=== PATIENT | female | born 1930 | race Caucasian/White ===

== ENCOUNTER 2017-07-11 16:51 | Inpatient (IN) | payer MEDICARE ==
[2017-07-11 17:43] LABS: #Eosinphils 0.3 thou/uL (0.0-0.7); #Lymphocytes 1.8 thou/uL (1.20-3.40); #Monocytes 1.4 thou/uL (0.11-0.59); %Basophils 0.4 % (0.0-1.0); %Eosinophils 2.4 % (0.0-10.0); %Lymphocytes 14.2 % (21.0-51.0); %Monocytes 11.4 % (0.0-10.0); %Neutrophils 71.6 % (42.0-75.0); Hemoglobin 13.7 g/dL (12.0-16.0); Mean Corpuscular HGB CONC 33.1 g/dL (32.0-36.0); Mean Corpuscular Hemoglobin 32.7 pg (27.0-31.0); Mean Corpuscular Volume 98.8 fl (81.0-99.0); Mean Platelet Volume 6.1 fL (7.4-10.4); Platelet Count 262 thou/uL (130-400); RBC Distribution Width 12.2 % (11.5-14.5); White Blood Cell (WBC) Count 12.6 thou/uL (4.8-10.8)
[2017-07-11 18:02] LABS: ALT (SGPT) 16 U/L (8-55); AST (SGOT) 21 U/L (5-34); Albumin 4.2 g/dL (3.4-4.8); Alkaline Phosphatase 71 U/L (40-150); Anion Gap 13 mmol/L (10-20); BUN (Urea Nitrogen) 33 mg/dL (9.8-20.1); Bilirubin, Total 0.7 mg/dL (0.2-1.2); CK (CPK) 106 U/L (29-168); Calc. Creatinine Clearance 0 mL/min (70-130); Calcium 10.2 mg/dL (7.8-10.44); Carbon Dioxide 33 mmol/L (23-31); Chloride 92 mmol/L (98-107); Estimated GFR-MDRD 39; Globulin 3.1 g/dL (2.4-3.5); Glucose 82 mg/dL (83-110); Potassium 4.7 mmol/L (3.5-5.1); Protein, Total 7.3 g/dL (6.0-8.3); Sodium 133 mmol/L (136-145)
--- NOTE | 2017-07-11 18:02 | RAD ---
RIGHT ANKLE THREE VIEWS: 07/11/17 HISTORY: 87-year-old female with history of second toe osteomyelitis and cellulitis. There is minimal soft tissue swelling of the lower leg and ankle. No acute fracture or dislocation of the ankle. IMPRESSION: Diffuse soft tissue swelling of the lower leg and ankle. No fracture or dislocation. 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 POS: [facility]
--- NOTE | 2017-07-11 18:41 | RAD ---
RIGHT FOOT THREE VIEWS 07/11/17 HISTORY: 87-year-old female with left second toe osteomyelitis and cellulitis. There is soft tissue swelling o f the distal second toe with destructive changes of the distal phalanx of the second toe evidence for acute osteomyelitis. Extensive chronic changes in the midfoot, evidence for some degenerative arthro sis and possibly some developing neurotropic changes. Enthesophytic changes noted of the plantar fasc ia. No acute fracture or dislocation. IMPRESSION: Soft tissue swelling distal second toe and destructive changes of the distal phalanx evidence for ost eomyelitis. Arthrosis and degenerative changes right foot, particularly the mid foot with some possib le developing neurotropic changes of the mid foot. POS: [facility]
[2017-07-11] MEDS ORDERED: Cefepime 2 GM/10 ML SYR ONE (19:14)
[2017-07-11] MEDS ORDERED: Ondansetron HCl/PF 4 MG/2 ML Vial IVP PRN ×2 (21:35→22:17)
[2017-07-11] MEDS ORDERED: Ondansetron ODT 4 MG TAB SL PRN (21:35)
[2017-07-11] MEDS ORDERED: Morphine 2 MG/ML SYRINGE SLOW IVP PRN ×2 (21:36→22:17)
[2017-07-11] MEDS ORDERED: Dextrose 50% Abboject 50 ML SYRINGE SLOW IVP PRN (22:17)
[2017-07-11] MEDS ORDERED: Labetalol HCl 100 MG/20 ML VIAL SLOW IVP PRN (22:17)
[2017-07-11] MEDS ORDERED: Dextrose 5% in Water 1,000 ML IV PRN (22:17)
[2017-07-11] MEDS ORDERED: Acetaminophen 325 MG TAB PO PRN (22:17)
[2017-07-11] MEDS ORDERED: Milk Of Magnesia 30 ML UDCUP PO PRN (22:17)
[2017-07-11] MEDS ORDERED: HumaLOG 300 UNITS/3 ML VIAL SC PRN ×2 (22:17)
[2017-07-11] MEDS ORDERED: hydrALAZINE 20 MG/ML VIAL SLOW IVP PRN (22:17)
[2017-07-11] MEDS ORDERED: Mag-Al 1200 mg/1200 mg/30 ML UDCUP PO PRN (22:17)
[2017-07-11] MEDS ORDERED: Ondansetron ODT 4 MG TAB PO PRN (22:17)
[2017-07-12] MEDS: Sodium Chloride 0.9% 1,000 ML IV SCH ×2 (00:11→19:37)
--- NOTE | 2017-07-12 03:50 | HP ---
PRIMARY CARE PHYSICIAN: Dr. Sanders. CHIEF COMPLAINT: Swelling and infection in the second toe of the right foot. HISTORY OF PRESENT ILLNESS: Ms. Valdes is a very pleasant 87-year-old female who says she had proble ms with her second toe on the right foot. She says this started about 5 weeks ago, she noted some sw elling in the area. She says she talked to doctor at herself and says that it seems like it had nerissa en better, but then came back. She was seeing Dr. Sanders for unrelated symptoms for upper respiratory symptoms when he noticed the toe and placed her on some antibiotics and said that it would cover bot h the upper respiratory infection as well as the toe and then referred her to a multiple cut off saw operator. When she saw the multiple cut off saw operator, he recommended that she come in to be admitted because likely she would need a t oe amputation. She says she does not really feel any pain in the toe. She denies any fevers or chil ls. She does not believe that she had any type of trauma to the area, but she does walk, her wheelch air around and this does put some stress on the toe, otherwise, no other symptoms. REVIEW OF SYMPTOMS: Constitutional: No fevers, chills, no night sweats, no weight loss. HEENT: No headache, no dizziness, no visual changes, no sore throat, rhinorrhea, neck pain, no adenopathy. Pu lmonary: No hemoptysis, no cough, no wheezing. Cardiovascular: She denies any chest pain, no short ness of breath, no PND, no orthopnea. Gastrointestinal: No abdominal pain, no nausea, no vomiting, no change in bowels. Genitourinary: No urinary frequency, hematuria, no hesitancy. Neurologic: No focal weakness, numbness, no seizures. Psychiatric: No symptoms of anxiety or depression. Skin an d Integument: She had the changes in the toes previously mentioned. PAST MEDICAL HISTORY: Significant for asthma as well as COPD and chronic respiratory failure seconda ry to that, hypothyroidism, hypertension, breast cancer, generalized anxiety, depression, and diabete s mellitus for 15-20 years. PAST SURGICAL HISTORY: She has had back surgery, appendectomy, hysterectomy. ALLERGIES: CELEBREX, PENICILLIN, PHENERGAN, and AZITHROMYCIN. FAMILY HISTORY: Significant for heart disease in her mother. SOCIAL HISTORY: She lives at home alone, but she does have a caregiver who comes in daily. Denies a ny alcohol, smoking, or drugs. CODE STATUS: FULL CODE. CURRENT MEDICATIONS: Taken from the emergency room records as the patient's daughter said they had g iven those to the ER physician and these include iron 18 mg daily, citalopram 40 mg daily, levothyrox ine 100 mcg daily, lisinopril/hydrochlorothiazide 20/12.5 daily, vitamin D3 of 2000 units daily, daily min B12 of 2500 mcg twice a day, Protonix 40 mg twice daily, Bentyl 1 capsule 3 times a daily, magnes ium 400 mg twice a day, gabapentin 600 mg 2 times a day, metoprolol 50 mg 2 times a day, Wellbutrin-X L 150 mg twice a day, metformin 500 mg once a day, Singulair 4 mg daily, fluticasone nasal spray once daily, albuterol inhaler 2 puffs p.r.n., Incruse Ellipta one inhalation daily, Brovana 1 inhalation daily, budesonide 1 inhalation daily, ipratropium p.r.n., Tessalon Perles, and nystatin. PHYSICAL EXAMINATION: GENERAL: She is alert and oriented. She appears to be in no acute distress. VITAL SIGNS: Blood pressure is 113/64, heart rate 107, respiratory rate of 20, temperature is 97.8. HEENT: Pupils are equal, round, and reactive. Extraocular muscles are intact. Sclerae anicteric. Throat, no erythema, no exudates. NECK: No adenopathy, no bruits. LUNGS: She has got bilateral expiratory wheezing and occasional rhonchi, no rales. CARDIOVASCULAR: She has a normal S1, S2. I did not appreciate any S3 or S4. No murmurs, clicks, or rubs. ABDOMEN: Obese, it is soft, nontender, nondistended. Positive for bowel sounds. No rebound, no gua rding. EXTREMITIES: She has got significant edema of the right lower extremity as well as some erythema and redness on the dorsum of the foot extending up into the calf. She has palpable dorsalis pedis pulse s on the right; however, her pulses are diminished on the left. She has the swelling in the first an d second toe. There is some vesicular area looking more or less like a pustule on the lateral surfac e of the second toe and hammertoe deformities on both feet. She does have some erythema on the left lower extremity and foot, but no warmth; however, on the left lower extremity, her pulses are actuall y more diminished than on the right and her sensation is diminished. LABORATORY RESULTS: Sodium 133, potassium 4.7, chloride is 92, CO2 is 33, BUN of 33, creatinine 1.28 , glucose is 82. White blood cell count 12.6, hemoglobin 13.7, hematocrit is 41.5, platelet count is 262. He had an x-ray of the foot showing destructive changes of the distal phalanx consistent with osteomyelitis. There are some degenerative changes and some degenerative changes of the ankle. ASSESSMENT AND PLAN: This is an 87-year-old female that presents to the emergency room with an infec tion in the second toe, which appears to be fairly extensive radiographically with evidence of osteom yelitis in the toe. She will be admitted and started on empiric IV antibiotics, given her allergies to PENICILLIN and AZITHROMYCIN, we will go with Walker and Seda. Her podiatrists will be consult ed for removal of the toe, which has already been planned. We will also need to assess her circulati on and we will get arterial Dopplers, as there is some concern on the left foot, which could be impor tant for future management. 1. Diabetes mellitus. We will hold metformin and treat her with a sliding scale for now until we ar e certain that there is no need for any contrasted studies. 2. Hypertension. We will continue her usual home medications as well as p.r.n. medications. 3. Chronic obstructive pulmonary disease and asthma. We will continue her home medications as avail able and place her on scheduled as well as p.r.n. DuoNebs. She will also be placed on deep venous th rombosis and gastrointestinal prophylaxis.
[2017-07-12] MEDS: metroNIDAZOLE 500 MG in Premix Bag 1 BAG IVPB SCH ×3 (05:28→21:02)
[2017-07-12 05:44] LABS: #Eosinphils 0.3 thou/uL (0.0-0.7); #Lymphocytes 1.5 thou/uL (1.20-3.40); #Monocytes 1.2 thou/uL (0.11-0.59); #Neutrophils 5.1 thou/uL (1.40-6.50); %Basophils 0.2 % (0.0-1.0); %Eosinophils 3.8 % (0.0-10.0); %Lymphocytes 18.6 % (21.0-51.0); %Monocytes 14.7 % (0.0-10.0); %Neutrophils 62.8 % (42.0-75.0); Hemoglobin 12.5 g/dL (12.0-16.0); Mean Corpuscular HGB CONC 32.8 g/dL (32.0-36.0); Mean Corpuscular Hemoglobin 32.6 pg (27.0-31.0); Mean Corpuscular Volume 99.2 fl (81.0-99.0); Mean Platelet Volume 6.3 fL (7.4-10.4); Platelet Count 234 thou/uL (130-400); RBC Distribution Width 12.2 % (11.5-14.5); Red Blood Cell (RBC) Count 3.85 mill/uL (4.20-5.40)
[2017-07-12 06:02] LABS: Anion Gap 13 mmol/L (10-20); BUN (Urea Nitrogen) 31 mg/dL (9.8-20.1); Calc. Creatinine Clearance 41 mL/min (70-130); Calcium 9.3 mg/dL (7.8-10.44); Carbon Dioxide 30 mmol/L (23-31); Chloride 96 mmol/L (98-107); Estimated GFR-MDRD 43; Glucose 113 mg/dL (83-110); Potassium 4.9 mmol/L (3.5-5.1); Sodium 134 mmol/L (136-145)
[2017-07-12] MEDS: Arformoterol 15 MCG/2 ML NEB NEB SCH ×2 (06:27→18:15)
[2017-07-12] MEDS ORDERED: Neomycin-Polymyxin 1 ML AMP ONE (09:06)
[2017-07-12] MEDS ORDERED: Bupivacaine PF 0.5% 30 ML VIAL ONE (09:06)
[2017-07-12] MEDS ORDERED: Propofol 500 MG/50 ML VIAL ONE (09:07)
[2017-07-12] MEDS ORDERED: Fentanyl 100 MCG/2 ML VIAL ONE (09:07)
[2017-07-12] MEDS ORDERED: PHENYLEPHRINE-NS 100 MCG/ML 10 ML SYRINGE ONE (09:36)
[2017-07-12] MEDS: Docusate 100 MG CAP PO SCH ×2 (09:45→20:54)
[2017-07-12] MEDS: Heparin 5,000 UNITS/ML VIAL SC SCH ×2 (09:45→20:50)
[2017-07-12] MEDS ORDERED: Ondansetron HCl/PF 4 MG/2 ML Vial IVP PRN (09:59)
--- NOTE | 2017-07-12 11:39 | OP ---
DATE OF PROCEDURE: 07/12/2017 SURGEON: Osmar Peterson DPM. PREOPERATIVE DIAGNOSIS: Osteomyelitis, right second toe. POSTOPERATIVE DIAGNOSIS: Osteomyelitis, right second toe. PROCEDURE: Amputation to the proximal phalanx of the right second toe. ANESTHESIA: Local with monitored anesthetic care. HEMOSTASIS: None. ESTIMATED BLOOD LOSS: 5 mL MATERIALS: 1. 4-0 Vicryl. 2. 3-0 nylon. INJECTABLES: 7 mL of 0.5% Marcaine plain intraoperatively. COMPLICATIONS: None. SUMMARY OF PROCEDURE: Patient was brought into the operative suite, placed supine on the operative t able. Time out performed identifying correct patient, procedure, and operative site. Foot was prepp ed and draped in an aseptic manner. [place] incision made over the proximal interphalangeal joint, sharp and blunt dissection through the proximal interphalangeal joint amputating the toe at this lev el. Bone at this level was hard, white, glistening, healthy without signs of infection. Head of the proximal phalanx was resected with bone cutter. Bleeders were ligated with electrocautery. The wou nd was irrigated with sterile saline, subcu reapproximated with 4-0 Vicryl, and skin reapproximated w ith 3-0 nylon. Bandages applied including Xeroform gauze, roll gauze, and Geoff bandage. The patient tolerated the procedure and anesthesia well and was transferred out of the operative suite with vital signs stable and neurovascular status intact to the right lower extremity. She will be kept for a s hort period of monitoring and then transferred back to her hospital suite.
--- NOTE | 2017-07-12 13:13 | RAD ---
RIGHT FOOT 2 VIEWS: Date: 07/12/17 HISTORY: Osteomyelitis. COMPARISON: Foot radiographs from prior day. FINDINGS: Interval surgical resection of second toe proximal phalanx diaphysis. IMPRESSION: Amputation of the second toe proximal phalanx diaphysis. POS: [facility]
[2017-07-12] MEDS: Dicyclomine 10 MG CAP PO SCH ×2 (15:07→20:52)
--- NOTE | 2017-07-12 15:09 | PDOC.PN ---
- Subjective Encounter Start Date: 07/12/17 Encounter Start Time: 15:07 Pt seen for followup re: toe osteomyelitis. Denies chest pain or shortness of breath. - Objective Resuscitation Status: Resuscitation Status FULL:Full Resuscitation MAR Reviewed: Yes Vital Signs & Weight: Vital Signs (12 hours) Temp Pulse Resp BP BP Pulse Ox 07/12/17 10:45 98.1 F 80 18 111/62 93 L 07/12/17 08:00 98.5 F 87 14 07/12/17 07:52 98.5 F 87 14 121/72 98 07/12/17 06:25 79 14 98 Weight Weight 175 lb I&O: 07/11/17 07/12/17 07/13/17 06:59 06:59 06:59 Intake Total 1050 Balance 1050 Result Diagrams: 07/12/17 04:18 07/12/17 04:18 Additional Labs: Accuchecks 07/12/17 07/12/17 10:45 05:39 POC Glucose 101 105 Phys Exam - Physical Examination Constitutional: NAD HEENT: moist MMs Respiratory: clear to auscultation bilateral Cardiovascular: RRR Gastrointestinal: soft s/p R foot surgery Neurological: moves all 4 limbs Psychiatric: normal affect Dx/Plan (1) Toe osteomyelitis Code(s): M86.9 - OSTEOMYELITIS, UNSPECIFIED Status: Acute (2) MIGUEL (acute kidney injury) Code(s): N17.9 - ACUTE KIDNEY FAILURE, UNSPECIFIED Status: Acute (3) DM2 (diabetes mellitus, type 2) Status: Chronic (4) HTN (hypertension) Code(s): I10 - ESSENTIAL (PRIMARY) HYPERTENSION Status: Chronic (5) COPD (chronic obstructive pulmonary disease) Status: Chronic (6) Hypothyroidism Code(s): E03.9 - HYPOTHYROIDISM, UNSPECIFIED Status: Chronic - Plan plan discussed w/ family, continue antibiotics, PT/OT, out of bed/ambulate, DVT proph w/SCDs * . Continue antibiotics, await cultures. Ambulate pt. Discussed with daughter, updated her, family requesting Rehab eval. Hold nephrotoxic meds for now, creatinine improving. Monitor vital signs, titrate antihypertensives as needed. Review of Systems - Review of Systems Respiratory: negative: Cough, Dry, Shortness of Breath, Hemoptysis, SOB with Excertion, Pleuritic Pain, Sputum, Wheezing Cardiovascular: negative: chest pain, palpitations, orthopnea, paroxysmal nocturnal dyspnea, edema, light headedness - Medications/Allergies Allergies/Adverse Reactions: Allergies Allergy/AdvReac Type Severity Reaction Status Date / Time azithromycin [From Zithromax] Allergy Verified 07/12/17 00:10 celecoxib [From Celebrex] Allergy Verified 07/12/17 00:10 Penicillins Allergy Verified 07/12/17 00:10 promethazine [From Phenergan] Allergy Verified 07/12/17 00:10 Medications: Current Medications Acetaminophen (Tylenol) 650 mg PO Q4H PRN PRN Reason: Headache/Fever or Pain Al Hydroxide/Mg Hydroxide (Maalox) 30 ml PO Q6H PRN PRN Reason: Heartburn or Indigestion Albuterol/Ipratropium (Duoneb) 3 ml NEB Q4H PRN PRN Reason: SOB &/or Wheezing Albuterol/Ipratropium (Duoneb) 3 ml NEB [id number] [facility] Last Admin: 07/12/17 12:54 Dose: Not Given Arformoterol Tartrate (Brovana) 15 mcg NEB BID-RT [facility] Last Admin: 07/12/17 06:27 Dose: 15 mcg Bupropion HCl (Wellbutrin Xl) 150 mg PO BID [facility] Cholecalciferol (Vitamin D3) 2,000 units PO DAILY [facility] Citalopram Hydrobromide (Celexa) 40 mg PO DAILY [facility] Cyanocobalamin (Vitamin B-12) 2,500 mcg PO BID [facility] Dextrose/Water (Dextrose 50%) 25 gm SLOW IVP PRN PRN PRN Reason: Hypoglycemia Dicyclomine HCl (Bentyl) 10 mg PO TID [facility] Last Admin: 07/12/17 15:07 Dose: 10 mg Docusate Sodium (Colace) 100 mg PO BID [facility] Last Admin: 07/12/17 09:45 Dose: Not Given Gabapentin (Neurontin) 1,200 mg PO BID [facility] Glucagon (Glucagon) 1 mg IM PRN PRN PRN Reason: Hypoglycemia Heparin Sodium (Porcine) (Heparin) 5,000 units SC BID [facility] Last Admin: 07/12/17 09:45 Dose: Not Given Hydralazine HCl (Apresoline) 10 mg SLOW IVP Q4H PRN PRN Reason: Systolic BP > 180 Dextrose/Water (D5w) 1,000 mls @ 0 mls/hr IV .Q0M PRN; As Directed PRN Reason: Hypoglycemia Levofloxacin 500 mg/ Device 100 mls @ 100 mls/hr IVPB 2300 [facility] Last Admin: 07/12/17 00:14 Dose: 100 mls Metronidazole 500 mg/ Device 100 mls @ 100 mls/hr IVPB Q8HR [facility] Last Admin: 07/12/17 14:19 Dose: 100 mls Sodium Chloride (Normal Saline 0.9%) 1,000 mls @ 50 mls/hr IV .Q20H [facility] Last Admin: 07/12/17 00:11 Dose: 1,000 mls Insulin Human Lispro (Humalog) 0 units SC .MODERATE SLIDING SC PRN PRN Reason: Moderate Correctional Scale Insulin Human Lispro (Humalog) 0 units SC .BEDTIME SLIDING SC PRN PRN Reason: Bedtime Correctional Scale Labetalol HCl (Normodyne) 20 mg SLOW IVP Q4H PRN PRN Reason: Systolic BP > 180 Levothyroxine Sodium (Synthroid) 100 mcg PO 0600 [facility] Magnesium Hydroxide (Milk Of Magnesium) 30 ml PO DAILYPRN PRN PRN Reason: Constipation Magnesium Oxide (Magnesium Oxide) 800 mg PO BID [facility] Metoprolol Tartrate (Lopressor) 50 mg PO BID [facility] Morphine Sulfate (Morphine) 2 mg SLOW IVP Q4H PRN PRN Reason: Moderate to Severe Pain (4-10) Ondansetron HCl (Zofran Odt) 4 mg PO Q6H PRN PRN Reason: Nausea/Vomiting Ondansetron HCl (Zofran) 4 mg IVP Q6H PRN PRN Reason: Nausea/Vomiting Pantoprazole Sodium (Protonix) 40 mg PO BID [facility]
--- NOTE | 2017-07-12 18:02 | ULT ---
BILATERAL LOWER EXTREMITY ARTERIAL VASCULAR DUPLEX INCLUDING COLOR AND SPECTRAL DOPPLER IMAGIN07/12/17 HISTORY: 87-year-old female with diabetic foot infection on the right and decreased pulses on the left. There is mostly monophasic waveforms throughout the right lower extremity arterial tree including com mon femoral, profunda femoral, proximal and distal superficial femoral, popliteal, anterior and poste rior tibial veins with biphasic flow in the mid superficial femoral artery. There is some increased v elocities particularly involving the common femoral artery and the superficial femoral artery region and posterior tibial artery. Evidence for some fairly diffuse extensive arterial vascular stenotic di sease. On the left side, there is some monophasic and biphasic flow throughout the left lower extremi ty including from the groin to the ankle. There is no normal triphasic flow noted involving either ri ght or left lower extremity. There is some increased velocities within the left superficial femoral a rtery, and common femoral artery. IMPRESSION: Abnormal monophasic or biphasic flow involving the entire right and left lower extremities with no no rmal triphasic flow noted. No significant overt occlusive disease was demonstrated. Increased velocit ies noted in the right common femoral artery and superficial femoral arteries as well as the left com mon femoral and superficial femoral arteries, although worse on the right side. Given extensive rathe r diffuse bilateral disease, consideration for followup CT angiogram of the aorta and lower extremity runoff CT angiogram is suggested for further assessment. POS: [facility]
[2017-07-12] MEDS: Cyanocobalamin (Vitamin B-12) 1,000 MCG TAB PO SCH (20:53)
[2017-07-12] MEDS: Bupropion 150 MG XL TAB PO SCH (20:54)
[2017-07-12] MEDS: Magnesium Oxide 400 MG TAB PO SCH (20:54)
[2017-07-12] MEDS: Gabapentin 400 MG CAP PO SCH (20:54)
[2017-07-12] MEDS: Metoprolol Tartrate 50 MG TAB PO SCH (20:55)
[2017-07-13] MEDS: Levothyroxine Sodium 100 MCG TAB PO SCH (05:48)
[2017-07-13] MEDS: metroNIDAZOLE 500 MG in Premix Bag 1 BAG IVPB SCH ×3 (05:48→21:38)
[2017-07-13] MEDS: Magnesium Oxide 400 MG TAB PO SCH ×2 (08:50→20:02)
[2017-07-13] MEDS: Gabapentin 400 MG CAP PO SCH ×2 (08:50→20:02)
[2017-07-13] MEDS: Citalopram 20 MG TAB PO SCH (08:50)
[2017-07-13] MEDS: Cyanocobalamin (Vitamin B-12) 1,000 MCG TAB PO SCH ×2 (08:51→20:01)
[2017-07-13] MEDS: Metoprolol Tartrate 50 MG TAB PO SCH ×2 (08:54→20:02)
[2017-07-13] MEDS: Bupropion 150 MG XL TAB PO SCH ×2 (08:54→20:01)
[2017-07-13] MEDS: Docusate 100 MG CAP PO SCH ×2 (08:54→20:02)
[2017-07-13] MEDS: Dicyclomine 10 MG CAP PO SCH ×3 (08:54→20:29)
[2017-07-13] MEDS: Arformoterol 15 MCG/2 ML NEB NEB SCH ×2 (09:18→18:38)
[2017-07-13 09:51] LABS: #Eosinphils 0.3 thou/uL (0.0-0.7); #Lymphocytes 1.1 thou/uL (1.20-3.40); #Monocytes 0.9 thou/uL (0.11-0.59); #Neutrophils 4.2 thou/uL (1.40-6.50); %Basophils 0.6 % (0.0-1.0); %Eosinophils 4.2 % (0.0-10.0); %Lymphocytes 17.3 % (21.0-51.0); %Monocytes 13.3 % (0.0-10.0); %Neutrophils 64.5 % (42.0-75.0); Hemoglobin 12.5 g/dL (12.0-16.0); Mean Corpuscular HGB CONC 33.3 g/dL (32.0-36.0); Mean Corpuscular Hemoglobin 33.3 pg (27.0-31.0); Mean Platelet Volume 5.7 fL (7.4-10.4); Platelet Count 219 thou/uL (130-400); RBC Distribution Width 12.1 % (11.5-14.5); Red Blood Cell (RBC) Count 3.76 mill/uL (4.20-5.40); White Blood Cell (WBC) Count 6.5 thou/uL (4.8-10.8)
[2017-07-13 10:12] LABS: Anion Gap 10 mmol/L (10-20); BUN (Urea Nitrogen) 21 mg/dL (9.8-20.1); Calc. Creatinine Clearance 56 mL/min (70-130); Calcium 9.2 mg/dL (7.8-10.44); Carbon Dioxide 30 mmol/L (23-31); Chloride 98 mmol/L (98-107); Estimated GFR-MDRD 61; Glucose 109 mg/dL (83-110); Potassium 4.5 mmol/L (3.5-5.1); Sodium 133 mmol/L (136-145)
[2017-07-13] MEDS: Heparin 5,000 UNITS/ML VIAL SC SCH ×2 (10:49→20:03)
[2017-07-13] MEDS: Lidocaine Viscous Sol 2% 15 ml UD Cup SSP SCH ×3 (12:35→18:33)
--- NOTE | 2017-07-13 13:28 | PDOC.PN ---
- Subjective Encounter Start Date: 07/13/17 Encounter Start Time: 09:00 Pt seen for followup re: toe infection. No complaints today. - Objective Resuscitation Status: Resuscitation Status FULL:Full Resuscitation MAR Reviewed: Yes Vital Signs & Weight: Vital Signs (12 hours) Temp Pulse Resp BP Pulse Ox 07/13/17 12:05 98.5 F 78 18 95/58 L 95 07/13/17 09:18 80 20 98 07/13/17 09:15 98 07/13/17 09:14 80 20 98 07/13/17 08:09 97.3 F L 78 14 115/69 96 07/13/17 04:32 97.6 F 78 18 112/62 94 L 07/13/17 02:41 91 L 07/13/17 01:48 16 Weight Weight 175 lb I&O: 07/12/17 07/13/17 07/14/17 06:59 06:59 06:59 Intake Total 1050 2630 Balance 1050 2630 Result Diagrams: 07/13/17 09:44 07/13/17 09:44 Additional Labs: Accuchecks 07/13/17 07/13/17 07/13/17 10:38 05:35 00:17 POC Glucose 127 H 95 105 07/12/17 15:42 POC Glucose 259 H Phys Exam - Physical Examination Constitutional: NAD HEENT: moist MMs, oral pharynx no lesions Neck: supple Respiratory: clear to auscultation bilateral Cardiovascular: RRR Gastrointestinal: soft Musculoskeletal: pulses present s/p R foot surgery Neurological: moves all 4 limbs Psychiatric: normal affect Skin: no rash Dx/Plan (1) Toe osteomyelitis Code(s): M86.9 - OSTEOMYELITIS, UNSPECIFIED Status: Acute (2) MIGUEL (acute kidney injury) Code(s): N17.9 - ACUTE KIDNEY FAILURE, UNSPECIFIED Status: Chronic (3) DM2 (diabetes mellitus, type 2) Status: Chronic (4) HTN (hypertension) Code(s): I10 - ESSENTIAL (PRIMARY) HYPERTENSION Status: Chronic (5) COPD (chronic obstructive pulmonary disease) Status: Chronic (6) Hypothyroidism Code(s): E03.9 - HYPOTHYROIDISM, UNSPECIFIED Status: Chronic - Plan * . Continue antibiotics, await culture results. Continue accuchecks, insulin sliding scale. Discussed with daughter. Pt appears to have diffuse PVD, will consult CV surg for opinion as well as to see if further imaging (CTA etc. is really needed, given her renal function. Review of Systems - Review of Systems Respiratory: negative: Cough, Dry, Shortness of Breath, Hemoptysis, SOB with Excertion, Pleuritic Pain, Sputum, Wheezing Cardiovascular: negative: chest pain, palpitations, orthopnea, paroxysmal nocturnal dyspnea, edema, light headedness - Medications/Allergies Allergies/Adverse Reactions: Allergies Allergy/AdvReac Type Severity Reaction Status Date / Time azithromycin [From Zithromax] Allergy Verified 07/12/17 00:10 celecoxib [From Celebrex] Allergy Verified 07/12/17 00:10 Penicillins Allergy Verified 07/12/17 00:10 promethazine [From Phenergan] Allergy Verified 07/12/17 00:10 Medications: Current Medications Acetaminophen (Tylenol) 650 mg PO Q4H PRN PRN Reason: Headache/Fever or Pain Al Hydroxide/Mg Hydroxide (Maalox) 30 ml PO Q6H PRN PRN Reason: Heartburn or Indigestion Albuterol/Ipratropium (Duoneb) 3 ml NEB Q4H PRN PRN Reason: SOB &/or Wheezing Albuterol/Ipratropium (Duoneb) 3 ml NEB [id number] [facility] Last Admin: 07/13/17 09:14 Dose: 3 ml Arformoterol Tartrate (Brovana) 15 mcg NEB BID-RT [facility] Last Admin: 07/13/17 09:18 Dose: 15 mcg Bupropion HCl (Wellbutrin Xl) 150 mg PO BID [facility] Last Admin: 07/13/17 08:54 Dose: 150 mg Cholecalciferol (Vitamin D3) 2,000 units PO DAILY [facility] Last Admin: 07/13/17 08:50 Dose: 2,000 units Citalopram Hydrobromide (Celexa) 40 mg PO DAILY [facility] Last Admin: 07/13/17 08:50 Dose: 40 mg Cyanocobalamin (Vitamin B-12) 2,500 mcg PO BID [facility] Last Admin: 07/13/17 08:51 Dose: 2,500 mcg Dextrose/Water (Dextrose 50%) 25 gm SLOW IVP PRN PRN PRN Reason: Hypoglycemia Dicyclomine HCl (Bentyl) 10 mg PO TID [facility] Last Admin: 07/13/17 08:54 Dose: 10 mg Docusate Sodium (Colace) 100 mg PO BID [facility] Last Admin: 07/13/17 08:54 Dose: 100 mg Gabapentin (Neurontin) 1,200 mg PO BID [facility] Last Admin: 07/13/17 08:50 Dose: 1,200 mg Glucagon (Glucagon) 1 mg IM PRN PRN PRN Reason: Hypoglycemia Heparin Sodium (Porcine) (Heparin) 5,000 units SC BID [facility] Last Admin: 07/13/17 10:49 Dose: 5,000 units Hydralazine HCl (Apresoline) 10 mg SLOW IVP Q4H PRN PRN Reason: Systolic BP > 180 Dextrose/Water (D5w) 1,000 mls @ 0 mls/hr IV .Q0M PRN; As Directed PRN Reason: Hypoglycemia Levofloxacin 500 mg/ Device 100 mls @ 100 mls/hr IVPB 2300 [facility] Last Admin: 07/13/17 00:33 Dose: 100 mls Metronidazole 500 mg/ Device 100 mls @ 100 mls/hr IVPB Q8HR [facility] Last Admin: 07/13/17 05:48 Dose: 100 mls Sodium Chloride (Normal Saline 0.9%) 1,000 mls @ 50 mls/hr IV .Q20H [facility] Last Admin: 07/12/17 19:37 Dose: Not Given Insulin Human Lispro (Humalog) 0 units SC .MODERATE SLIDING SC PRN PRN Reason: Moderate Correctional Scale Last Admin: 07/12/17 17:54 Dose: 6 unit Insulin Human Lispro (Humalog) 0 units SC .BEDTIME SLIDING SC PRN PRN Reason: Bedtime Correctional Scale Labetalol HCl (Normodyne) 20 mg SLOW IVP Q4H PRN PRN Reason: Systolic BP > 180 Levothyroxine Sodium (Synthroid) 100 mcg PO 0600 [facility] Last Admin: 07/13/17 05:48 Dose: 100 mcg Lidocaine HCl (Xylocaine 2% Viscous) 15 ml SSP Q3HR [facility] Last Admin: 07/13/17 12:35 Dose: 15 ml Magnesium Hydroxide (Milk Of Magnesium) 30 ml PO DAILYPRN PRN PRN Reason: Constipation Magnesium Oxide (Magnesium Oxide) 800 mg PO BID [facility] Last Admin: 07/13/17 08:50 Dose: 800 mg Metoprolol Tartrate (Lopressor) 50 mg PO BID [facility] Last Admin: 07/13/17 08:54 Dose: 50 mg Morphine Sulfate (Morphine) 2 mg SLOW IVP Q4H PRN PRN Reason: Moderate to Severe Pain (4-10) Nystatin (Mycostatin) 500,000 units SSW QID [facility] Ondansetron HCl (Zofran Odt) 4 mg PO Q6H PRN PRN Reason: Nausea/Vomiting Ondansetron HCl (Zofran) 4 mg IVP Q6H PRN PRN Reason: Nausea/Vomiting Pantoprazole Sodium (Protonix) 40 mg PO BID [facility] Last Admin: 07/13/17 08:55 Dose: 40 mg
[2017-07-13] MEDS: Sodium Chloride 0.9% 1,000 ML IV SCH ×2 (15:13→20:15)
[2017-07-13] MEDS: Nystatin 500,000 UNITS/5 ML UDCUP SSW SCH ×3 (15:15→20:03)
--- NOTE | 2017-07-13 23:35 | CON ---
DATE OF CONSULTATION: 07/13/2017 REASON FOR CONSULTATION: Right lower extremity vascular evaluation. PERTINENT HISTORY: The patient is an 87-year-old female who underwent amputation of the right second toe yesterday for ulceration and osteomyelitic destruction of this digit. Bilateral lower extremity arterial duplex was suggestive of PAD involving each lower extremity; however, examination reveals s trongly palpable right femoral, popliteal, posterior tibial, and dorsalis pedis pulses. These exam f indings are mirrored on the left side. The patient has longstanding diabetes, however, denies claudi cation or ischemic rest pain involving either lower extremity. PAST MEDICAL HISTORY: 1. COPD. 2. Asthma. 3. Hypothyroidism. 4. Hypertension. 5. Diabetes. 6. Anxiety/depression disorder. 7. Right breast cancer treated with oral chemotherapy. PAST SURGICAL HISTORY: 1. Hysterectomy. 2. Cholecystectomy. ALLERGIES: AZITHROMYCIN, CELECOXIB, PENICILLIN, AND PROMETHAZINE. SOCIAL HISTORY: States she has never been a cigarette smoker. Nondrinker. FAMILY HISTORY: Noncontributory. REVIEW OF SYSTEMS: No history of dyslipidemia, stroke, kidney or liver disease, atherosclerotic hear t disease, or valvular heart disease. CURRENT MEDICATIONS: Brovana, Wellbutrin, vitamin D, Celexa, Bentyl, Colace, gabapentin, subcu hepar in, DuoNebs, Synthroid, magnesium, metoprolol, nystatin swish and swallow, Protonix, IV Flagyl, and I V Levaquin. She additionally is on an insulin sliding scale. LABORATORY DATA AND X-RAY: White blood cell count 6.5, hemoglobin 12.5, platelet count 219,000. Cre atinine 0.87. PHYSICAL EXAMINATION: VITAL SIGNS: Height 5 feet 4 inches, weight 175 pounds. Blood pressure 100/57, temperature 98.7, he art rate 77. GENERAL: Elderly female in no acute distress. She is fully oriented. HEENT: Grossly unremarkable. NECK: Without JVD or adenopathy. LUNGS: Clear with good inspiratory effort. HEART: Regular rate and rhythm without murmur or rub. ABDOMEN: Soft and nontender without palpable mass or hepatosplenomegaly. EXTREMITIES: Without edema. VASCULAR: As described above. Radial pulses are palpable bilaterally. No carotid bruits were appre ciated. Abdominal aorta is nonpalpable. NEUROLOGIC: No focal deficits. IMPRESSION: Clinically-preserved bilateral lower extremity arterial vascular status. This should pe rmit adequate healing of the right second toe amputation site. RECOMMENDATIONS: No further lower extremity vascular workup is warranted at this time. Consider add ing low-dose antiplatelet therapy to her daily medical regimen, i.e., 81 mg aspirin tablet.
[2017-07-14] MEDS: Levothyroxine Sodium 100 MCG TAB PO SCH (05:30)
[2017-07-14] MEDS: metroNIDAZOLE 500 MG in Premix Bag 1 BAG IVPB SCH (05:30)
[2017-07-14] MEDS: Gabapentin 400 MG CAP PO SCH ×2 (09:10→20:08)
[2017-07-14] MEDS: Cyanocobalamin (Vitamin B-12) 1,000 MCG TAB PO SCH ×2 (09:12→20:07)
[2017-07-14] MEDS: Magnesium Oxide 400 MG TAB PO SCH ×2 (09:15→20:08)
[2017-07-14] MEDS: Bupropion 150 MG XL TAB PO SCH ×2 (09:15→20:06)
[2017-07-14] MEDS: Dicyclomine 10 MG CAP PO SCH ×3 (09:15→20:07)
[2017-07-14] MEDS: Metoprolol Tartrate 50 MG TAB PO SCH ×2 (09:16→20:08)
[2017-07-14] MEDS: Citalopram 20 MG TAB PO SCH (09:16)
[2017-07-14] MEDS: Docusate 100 MG CAP PO SCH ×2 (09:16→20:07)
[2017-07-14] MEDS: Nystatin 500,000 UNITS/5 ML UDCUP SSW SCH ×4 (09:17→20:09)
[2017-07-14] MEDS: Lidocaine Viscous Sol 2% 15 ml UD Cup SSP SCH ×4 (09:17→17:34)
[2017-07-14] MEDS: Heparin 5,000 UNITS/ML VIAL SC SCH ×2 (09:17→20:08)
--- NOTE | 2017-07-14 09:47 | PDOC.PN ---
- Subjective Encounter Start Date: 07/14/17 Encounter Start Time: 09:46 Subjective: cough, dyspneic - Objective Resuscitation Status: Resuscitation Status FULL:Full Resuscitation MAR Reviewed: Yes Vital Signs & Weight: Vital Signs (12 hours) Temp Pulse Resp BP Pulse Ox 07/14/17 09:35 99 07/14/17 09:32 77 22 H 99 07/14/17 07:45 98 F 86 20 123/75 95 07/14/17 04:00 97.9 F 82 18 125/70 98 07/14/17 00:24 97.7 F 79 18 112/64 95 Weight Weight 175 lb I&O: 07/13/17 07/14/17 07/15/17 06:59 06:59 06:59 Intake Total 2630 Balance 2630 Result Diagrams: 07/14/17 12:05 07/13/17 09:44 Additional Labs: Accuchecks 07/14/17 07/13/17 07/13/17 05:32 21:41 15:22 POC Glucose 94 103 103 07/13/17 10:38 POC Glucose 127 H Radiology Reviewed by me: Yes (cxr-small left pleural effusion) Phys Exam - Physical Examination Constitutional: NAD Neck: no JVD wheezes, rhonchi Cardiovascular: RRR, no significant murmur Gastrointestinal: soft, positive bowel sounds Musculoskeletal: no edema Dx/Plan (1) COPD exacerbation Code(s): J44.1 - CHRONIC OBSTRUCTIVE PULMONARY DISEASE W (ACUTE) EXACERBATION Status: Acute (2) Toe osteomyelitis Code(s): M86.9 - OSTEOMYELITIS, UNSPECIFIED Status: Resolved (3) DM2 (diabetes mellitus, type 2) Status: Chronic Qualifiers: Diabetes mellitus complication status: with circulatory complication Diabetes mellitus complication detail: with other circulatory complications (4) HTN (hypertension) Code(s): I10 - ESSENTIAL (PRIMARY) HYPERTENSION Status: Chronic Qualifiers: Hypertension type: essential hypertension Qualified Code(s): I10 - Essential (primary) hypertension (5) Hypothyroidism Code(s): E03.9 - HYPOTHYROIDISM, UNSPECIFIED Status: Chronic Qualifiers: Hypothyroidism type: unspecified Qualified Code(s): E03.9 - Hypothyroidism , unspecified - Plan CXR- now, cont nebs, add po levaquin -: post amputation, affected toe -: cont accu/sss/ etc * .
--- NOTE | 2017-07-14 11:19 | RAD ---
CHEST 1 VIEW: Date: 07/14/17 HISTORY: COPD and cough. COMPARISON: None. FINDINGS: There is left basilar air space opacity and small effusion. Possible small right effusion. Cardiac si lhouette upper limits of normal. No pneumothorax. IMPRESSION: Left lower lobe air space opacity and small effusion may represent pneumonia or peripneumonic effusio n. Follow-up recommended. POS: [facility]
[2017-07-14 12:30] LABS: #Eosinphils 0.5 thou/uL (0.0-0.7); #Lymphocytes 1.3 thou/uL (1.20-3.40); #Monocytes 0.9 thou/uL (0.11-0.59); #Neutrophils 3.6 thou/uL (1.40-6.50); %Basophils 0.8 % (0.0-1.0); %Eosinophils 7.5 % (0.0-10.0); %Lymphocytes 20.1 % (21.0-51.0); %Neutrophils 57.7 % (42.0-75.0); Hemoglobin 12.4 g/dL (12.0-16.0); Mean Corpuscular HGB CONC 33.1 g/dL (32.0-36.0); Mean Corpuscular Volume 99.7 fl (81.0-99.0); Platelet Count 206 thou/uL (130-400); Red Blood Cell (RBC) Count 3.76 mill/uL (4.20-5.40); White Blood Cell (WBC) Count 6.3 thou/uL (4.8-10.8)
[2017-07-14] MEDS: Arformoterol 15 MCG/2 ML NEB NEB SCH ×2 (12:32→21:53)
[2017-07-14] MEDS: Sodium Chloride 0.9% 1,000 ML IV SCH (19:34)
[2017-07-15] MEDS: Levothyroxine Sodium 100 MCG TAB PO SCH (05:29)
[2017-07-15] MEDS ORDERED: Azithromycin 250 MG TAB PO SCH (09:00)
[2017-07-15] MEDS: Nystatin 500,000 UNITS/5 ML UDCUP SSW SCH ×4 (09:27→21:19)
[2017-07-15] MEDS: Lidocaine Viscous Sol 2% 15 ml UD Cup SSP SCH ×4 (09:28→17:34)
[2017-07-15] MEDS: Heparin 5,000 UNITS/ML VIAL SC SCH ×2 (09:29→21:21)
[2017-07-15] MEDS: Dicyclomine 10 MG CAP PO SCH ×3 (09:29→21:19)
[2017-07-15] MEDS: Gabapentin 400 MG CAP PO SCH ×2 (09:29→21:20)
[2017-07-15] MEDS: Docusate 100 MG CAP PO SCH ×2 (09:30→21:20)
[2017-07-15] MEDS: Magnesium Oxide 400 MG TAB PO SCH ×2 (09:31→21:20)
[2017-07-15] MEDS: Citalopram 20 MG TAB PO SCH (09:31)
[2017-07-15] MEDS: Bupropion 150 MG XL TAB PO SCH ×2 (09:31→21:21)
[2017-07-15] MEDS: Metoprolol Tartrate 50 MG TAB PO SCH ×2 (09:32→21:21)
[2017-07-15] MEDS: Cyanocobalamin (Vitamin B-12) 1,000 MCG TAB PO SCH ×2 (09:32→21:20)
--- NOTE | 2017-07-15 09:57 | PDOC.PN ---
- Subjective Encounter Start Date: 07/15/17 Encounter Start Time: 09:55 Subjective: still has cough, wheezing - Objective Resuscitation Status: Resuscitation Status FULL:Full Resuscitation MAR Reviewed: Yes Vital Signs & Weight: Vital Signs (12 hours) Temp Pulse Resp BP BP Pulse Ox 07/15/17 08:00 98.0 F 76 14 122/61 99 07/15/17 07:04 99 07/15/17 07:02 76 18 99 07/15/17 05:00 98 F 85 20 145/76 H 95 07/15/17 02:58 94 L 07/15/17 00:11 97.9 F 93 22 H 156/86 H 100 07/14/17 22:42 87 16 94 L Weight Weight 175 lb I&O: 07/14/17 07/15/17 07/16/17 06:59 06:59 06:59 Intake Total 2200 Balance 2200 Result Diagrams: 07/14/17 12:05 07/13/17 09:44 Additional Labs: Accuchecks 07/15/17 07/14/17 07/14/17 04:43 19:47 16:24 POC Glucose 109 148 H 105 07/14/17 12:22 POC Glucose 155 H Phys Exam - Physical Examination Constitutional: NAD Neck: no JVD wheezes, rhonchi- diffuse, no focal findings Cardiovascular: RRR, no significant murmur Gastrointestinal: soft, non-tender, positive bowel sounds Musculoskeletal: no edema Dx/Plan (1) COPD exacerbation Code(s): J44.1 - CHRONIC OBSTRUCTIVE PULMONARY DISEASE W (ACUTE) EXACERBATION Status: Acute (2) Toe osteomyelitis Code(s): M86.9 - OSTEOMYELITIS, UNSPECIFIED Status: Resolved (3) DM2 (diabetes mellitus, type 2) Status: Chronic Qualifiers: Diabetes mellitus complication status: with circulatory complication Diabetes mellitus complication detail: with other circulatory complications (4) HTN (hypertension) Code(s): I10 - ESSENTIAL (PRIMARY) HYPERTENSION Status: Chronic Qualifiers: Hypertension type: essential hypertension Qualified Code(s): I10 - Essential (primary) hypertension (5) Hypothyroidism Code(s): E03.9 - HYPOTHYROIDISM, UNSPECIFIED Status: Chronic Qualifiers: Hypothyroidism type: unspecified Qualified Code(s): E03.9 - Hypothyroidism , unspecified - Plan cont nehs, levaquin- add po prednisone * .
[2017-07-15] MEDS ORDERED: predniSONE 50 MG TAB PO SCH (10:15)
[2017-07-15] MEDS: Arformoterol 15 MCG/2 ML NEB NEB SCH ×2 (13:13→20:06)
[2017-07-16] MEDS: Sodium Chloride 0.9% 1,000 ML IV SCH (02:30)
[2017-07-16] MEDS: Levothyroxine Sodium 100 MCG TAB PO SCH (05:23)
[2017-07-16] MEDS: Lidocaine Viscous Sol 2% 15 ml UD Cup SSP SCH ×2 (06:47→11:17)
[2017-07-16] MEDS ORDERED: predniSONE 20 MG TAB PO SCH (08:00)
[2017-07-16] MEDS: Bupropion 150 MG XL TAB PO SCH (09:27)
[2017-07-16] MEDS: Nystatin 500,000 UNITS/5 ML UDCUP SSW SCH ×2 (09:27→12:44)
[2017-07-16] MEDS: Heparin 5,000 UNITS/ML VIAL SC SCH (09:27)
[2017-07-16] MEDS: Docusate 100 MG CAP PO SCH (09:28)
[2017-07-16] MEDS: Cyanocobalamin (Vitamin B-12) 1,000 MCG TAB PO SCH (09:28)
[2017-07-16] MEDS: Citalopram 20 MG TAB PO SCH (09:28)
[2017-07-16] MEDS: Gabapentin 400 MG CAP PO SCH (09:29)
[2017-07-16] MEDS: Magnesium Oxide 400 MG TAB PO SCH (09:29)
[2017-07-16] MEDS: Metoprolol Tartrate 50 MG TAB PO SCH (09:29)
[2017-07-16] MEDS: Dicyclomine 10 MG CAP PO SCH ×2 (09:30→15:20)
[2017-07-16] MEDS: Arformoterol 15 MCG/2 ML NEB NEB SCH ×2 (10:25→18:19)
--- NOTE | 2017-07-16 11:49 | PDOC.PN ---
- Subjective Encounter Start Date: 07/16/17 Encounter Start Time: 11:47 Subjective: much less cough and sob - Objective Resuscitation Status: Resuscitation Status FULL:Full Resuscitation MAR Reviewed: Yes Vital Signs & Weight: Vital Signs (12 hours) Temp Pulse Resp BP Pulse Ox 07/16/17 09:49 96 07/16/17 09:48 94 16 07/16/17 07:36 97.5 F L 73 14 115/68 100 07/16/17 07:22 97.9 F 86 19 07/16/17 05:00 97.9 F 86 19 139/83 98 Weight Weight 175 lb I&O: 07/15/17 07/16/17 07/17/17 06:59 06:59 06:59 Intake Total 2200 2450 Balance 2200 2450 Result Diagrams: 07/14/17 12:05 07/13/17 09:44 Additional Labs: Accuchecks 07/16/17 07/16/17 07/15/17 11:23 05:13 20:57 POC Glucose 92 154 H 216 H 07/15/17 16:13 POC Glucose 117 H Phys Exam - Physical Examination Constitutional: NAD Neck: no JVD Respiratory: clear to auscultation bilateral Cardiovascular: RRR, no significant murmur Gastrointestinal: soft, positive bowel sounds Musculoskeletal: no edema Dx/Plan (1) COPD exacerbation Code(s): J44.1 - CHRONIC OBSTRUCTIVE PULMONARY DISEASE W (ACUTE) EXACERBATION Status: Acute (2) Toe osteomyelitis Code(s): M86.9 - OSTEOMYELITIS, UNSPECIFIED Status: Resolved (3) DM2 (diabetes mellitus, type 2) Status: Chronic Qualifiers: Diabetes mellitus complication status: with circulatory complication Diabetes mellitus complication detail: with other circulatory complications (4) HTN (hypertension) Code(s): I10 - ESSENTIAL (PRIMARY) HYPERTENSION Status: Chronic Qualifiers: Hypertension type: essential hypertension Qualified Code(s): I10 - Essential (primary) hypertension (5) Hypothyroidism Code(s): E03.9 - HYPOTHYROIDISM, UNSPECIFIED Status: Chronic Qualifiers: Hypothyroidism type: unspecified Qualified Code(s): E03.9 - Hypothyroidism , unspecified - Plan cont nebs, po steroids, antibx -: home 1-2 days on nebs, pred, levaquin * .
[2017-07-16 15:56] VITALS: BP 117/71; TEMP 98.2
--- NOTE | 2017-07-16 15:59 | DIS ---
DATE OF ADMISSION: 07/11/2017 DATE OF DISCHARGE: 07/16/2017 PRIMARY CARE PROVIDER: Dr. Dhillon. DISCHARGE DISPOSITION: Discharged to inpatient rehabilitation. FINAL DIAGNOSES: Osteomyelitis of the toe, post-amputation; chronic obstructive pulmonary disease wi th acute exacerbation; osteomyelitis of toe; essential hypertension; diabetes mellitus type 2; and hy pothyroidism. DISCHARGE MEDICATIONS: Nystatin suspensions 5 mL swish and swallow q.i.d., metoprolol 50 mg b.i.d., Bentyl 10 mg t.i.d. p.r.n., Wellbutrin 150 mg b.i.d., levothyroxine 100 mcg a day, metformin 500 mg a day, gabapentin 1200 mg twice a day, Celexa 40 mg a day, Protonix 40 mg a day, prednisone 40 mg a da y, levofloxacin 500 mg a day, DuoNeb 3 mL q.6 and q.4 hourly p.r.n., Brovana 15 mcg nebulized b.i.d., Aspirin 81 mg a day. ALLERGIES: CELEBREX, PENICILLIN, PHENERGAN, ZITHROMAX. CODE STATUS: FULL. PENDING AT THE TIME OF DISCHARGE: Nothing. HOSPITAL COURSE: The patient admitted electively for osteomyelitis of the toe. On 07/12/2017, she w as taken to the operating room. Dr. Osmar Peterson amputated her right second toe. The pathology rep ort was osteomyelitis. The patient's hospital stay was complicated by some shortness of breath. Ult imately, she developed an acute exacerbation of COPD, which was treated with steroids, nebs. At this time, she has improved dramatically. A chest x-ray was done during her hospital stay which showed a tiny left pleural effusion versus infiltrate. Her physical exam in that area was unremarkable. CBC done the same day failed to reveal a leukocytosis. She had blood cultures done which were negative. Hemoglobin was in the normal range during her hospital stay. Her blood sugars were followed and th ey were unremarkable. Basic metabolic profile was unremarkable except for sodium of 133. At the jozef e of discharge, she is doing well. Her chest is clear. Vital signs are stable. She is afebrile, O2 sats are running 94 to 97 on room air. She is being transferred to [facility] for ontinuing physical therapy and occupational therapy. She will be continued on steroids and Levaquin and nebulizers. Her steroids will need to be declined slowly while she is there to zero eventually. She should stay on the Levaquin for about another 7 days. CONSULTATIONS DURING HER HOSPITAL STAY: Dr. Silverio Dsouza in consultation for vascular determination considered no further workup needed. FOLLOWUP: With Dr. Dhillon post her rehab stay. Thirty-five minutes spent preparing this discharge.
== END 2017-07-16 18:35 | DRG 617 ==
LOC: ERS 16:51 → SURG A 19:39
PROVIDERS: ADMIT Internal Medicine Infectious Disease; ATTEND Internal Medicine Infectious Disease
PROC: 0Y6R0Z1 Detachment at Right 2nd Toe, High, Open Approach (ICD-10-PCS; principal; 2017-07-12)
DX: E11.69 Type 2 diabetes mellitus with other specified complication (principal); J96.11 Chronic respiratory failure with hypoxia; N17.9 Acute kidney failure, unspecified; J44.1 Chronic obstructive pulmonary disease with (acute) exacerbation; M86.9 Osteomyelitis, unspecified; J45.909 Unspecified asthma, uncomplicated; E03.9 Hypothyroidism, unspecified; Z85.3 Personal history of malignant neoplasm of breast; F41.1 Generalized anxiety disorder; F32.9 Major depressive disorder, single episode, unspecified; Z88.1 Allergy status to other antibiotic agents; Z88.0 Allergy status to penicillin; Z88.8 Allergy status to other drugs, medicaments and biological substances; M20.42 Other hammer toe(s) (acquired), left foot; M20.41 Other hammer toe(s) (acquired), right foot; I10 Essential (primary) hypertension; Z79.84 Long term (current) use of oral hypoglycemic drugs; Z79.82 Long term (current) use of aspirin; Z92.21 Personal history of antineoplastic chemotherapy
CPT/HCPCS: 36415; 36416; 71010; 80048; 80053; 82550; 83605; 85025; 85652; 86140; 87040; 87070; 87077; 87186; 87205; 88305; 88311; 93923; 94640; 96365; 96375; G8978-GP-CK; G8979-GP-CJ; G8987-GO-CL; G8988-GO-CK; J0692; J1644; J1956; J2704; J3010; J3370; J7620; S0020

== ENCOUNTER 2017-08-19 14:38 | Outpatient (CLI) | payer MEDICARE ==
--- NOTE | 2017-08-19 18:44 | MRI ---
MRI OF BRAIN WITHOUT CONTRAST: 08/19/17 HISTORY: Impaired cognition, other symptoms and signs involving cognitive function and awareness. FINDINGS: There is cortical atrophy. The ventricular size is more prominent than expected for the degree of atr ophy. Possibility of normal pressure hydrocephalus may be considered. Multiple foci of T2 prolongation are noted in the periventricular white matter consistent with chroni c small vessel ischemic disease. No restricted diffusion is noted. No evidence of infarct, hemorrhage , midline shift or abnormal extra-axial fluid collections is seen. The visualized paranasal sinuses a nd mastoid air cells are well aerated. IMPRESSION: 1. Cortical atrophy. 2. Chronic small vessel ischemic disease. 3. No evidence of acute intracranial process. 4. Findings suggestive of normal pressure hydrocephalus. Clinical correlation is recommended. POS: [facility]
== END 2017-08-19 14:39 | disposition home or self-care (01) ==
LOC: SCSMRI 14:38
PROVIDERS: ATTEND Internal Medicine
DX: R41.89 Other symptoms and signs involving cognitive functions and awareness (principal); G31.9 Degenerative disease of nervous system, unspecified; I67.82 Cerebral ischemia
CPT/HCPCS: 70551